=== PATIENT | female | born 1990 | race Caucasian/White ===

== ENCOUNTER 2019-08-10 14:43 | Inpatient (IN) | payer BC ==
[2019-08-18] VITALS (8 sets, daily range): BP systolic 107–127; BP diastolic 56–74; PULSE 68–91; TEMP 98.3–98.5
--- NOTE | 2019-08-18 19:00 | NUR ---
190- PATIENT ADMITED TO LABOR ROOM #5 FOR SCHEDULED INDUCTION. PATIENT AMBULATORY. PATIENT CHANGED INTO GOWN AND VOIDING AT THIS TIME. 1906- EFM PLACED ON PATIENT AT THIS TIME. FHT'S AUDIBLE IN LEFT LOWER QUADRANT IN 140'S, ABDOMEN PALPATED MILD AND RELAXED. 1914- VSS, SVE 1/50/-2 AND INTACT. PATIENT NOT EXPERIENCING CONTRACTIONS AT THIS TIME. CONSENT FORMS SIGNED. 1924- IV START IN LEFT FOREARM AT THIS TIME. 1939- MICOPROSTOL 50MCG GIVEN VAGINAL AT THIS TIME. FHT'S REASURRING FOR GESTATIONAL AGE. 1944- PATIENT DENIES ANY FURTHER NEEDS OR QUESTIONS.
[2019-08-18] MEDS ORDERED: COLACE 100100 MG/CAP PO (19:19)
[2019-08-18] MEDS ORDERED: PRENATAL 191 TAB PO (19:19)
[2019-08-18 19:41] LABS: HEMOGLOBIN 12.2 g/dl (12.5-16.0); MEAN CELL VOLUME 88 fl (80.0-100.0); MEAN CORPUSCULAR HEMOGLOBIN 31 pg (27.0-31.0); MEAN CORPUSCULAR HGB CONC 35 g/dl (33.0-37.0); PLATELET COUNT 181 K/mm3 (130-400); REDCELL DISTRIBUTION WIDTH-CV 13.6 % (11.5-14.5)
[2019-08-18 19:47] LABS: HEMATOCRIT 35.3 % (37.0-47.0)
[2019-08-18 19:58] LABS: BAND 2 % (0-10); LYMPHOCYTE 37 % (20.0-51.0); NEUTROPHILS 55 % (42.0-75.2); PLATELET ESTIMATE NORMAL (NORMAL)
[2019-08-19] VITALS (68 sets, daily range): BP systolic 71–148; BP diastolic 38–91; PULSE 74–138; TEMP 97.8–100.1
--- NOTE | 2019-08-19 06:25 | NUR ---
Intermittent late decelerations noted. Pt repostioned LL. Moderate variability with accelerations remain. 0630-Difficulty tracing FHR. Pulse oximeter probe applied to differentiate maternal/ pulse. LR bolus infusing. 0640-Late deceleration noted. SVE per this RN /-2. Pitocin shut off. Pt repositioned RL.
--- NOTE | 2019-08-19 08:17 | NUR ---
Dr. Morales at bedside. Reviews FHR strip. SVE per provider 3-/-1. Attempted AR. No fluid noted. Pericare performed. Pt repostioned. WR with peanut ball. Pt updated on POC. Bed locked in low position. Call light within reach.
--- NOTE | 2019-08-19 08:48 | NUR ---
Dr. Morales on unit. Reviews FHR strip. Orders to start pitocin infusion.
--- NOTE | 2019-08-19 10:00 | NUR ---
Pt repositioned LL. Late deceleration noted. Pitocin shut off. LR bolus infusing. O2 applied via simple mask at 10L. Pt states increase of pressure in right hip. SVE per this RN /- with bloody show. Pericare performed. Pt repositioned to RL. FHR recovers. Dr. Morales notified. See physician notification. Pt updated on POC. No questions or concerns at this time.
--- NOTE | 2019-08-19 16:35 | NUR ---
Dr. Morales at bedside. Begins pushing with patient. 1700-Orders for Chrisitne. See physician notification.
--- NOTE | 2019-08-19 17:20 | NUR ---
viable male infant attended by Dr. Morales. Nuchal cord x 2. Cord clamped x 2 from umbilicus and taken to warmer. 175-Manual extraction of placenta performed. Pitocin bolus infusing per protocol. Bilateral urethral laceration repair performed by Dr. Morales. Increased maternal bleeding with uterine atony noted. Orders for IM hemabate and methergine. See EMAR. Ray jenkins performed. Curette used for placenta removal. EBL 900cc. 182-Decision for D&C. Pt taken to OR via bed.
[2019-08-19 18:42] LABS: HEMOGLOBIN 10.6 g/dl (12.5-16.0); MEAN CELL VOLUME 89 fl (80.0-100.0); MEAN CORPUSCULAR HEMOGLOBIN 30 pg (27.0-31.0); MEAN CORPUSCULAR HGB CONC 34 g/dl (33.0-37.0); PLATELET COUNT 180 K/mm3 (130-400); RED BLOOD COUNT 3.53 M/mm3 (4.10-5.30); REDCELL DISTRIBUTION WIDTH-CV 13.7 % (11.5-14.5)
[2019-08-19 18:51] LABS: HEMATOCRIT 31.4 % (37.0-47.0)
--- NOTE | 2019-08-19 19:20 | NUR ---
1920 TEMP 99.0. NO UTERINE BLEEDING NOTED. DR LUNA AT BEDSIDE.
--- NOTE | 2019-08-19 19:20 | NUR ---
1920 TO PACU FROM OR AFTER D&C AND PLACEMENT OF INTRAUTERINE TAMPANODE. PERINEUM VERY SWOLLEN. ATKINSON PATENT AND NO VAGINAL BLEEDING NOTED IN TAMPANOLE BAG. SCDS ON. IV INFUSING IN RIGHT HAND AND LEFT FORARM. SLEEPY BUT AROUSES EASILY.
--- NOTE | 2019-08-19 19:25 | NUR ---
1925 O2 PER NC AT 2 L/MIN
--- NOTE | 2019-08-19 19:45 | NUR ---
1944 C/O UTERINE CRAMPING. DR LUNA AT BEDSIDE. MORPHINE 2 MG IVP GIVEN WITH GOOD RELIEF. PT ROMEO.
--- NOTE | 2019-08-19 20:00 | NUR ---
2000 REMAINS IN PACU FOR FIRST UNIT OF BLOOD TRANFUSION STARTED AT 2112. SEE BLOOD TRANSFUSION RECORD FOR VITAL SIGNS.
[2019-08-19 20:35] LABS: HEMATOCRIT 27.3 % (37.0-47.0); HEMOGLOBIN 9.4 g/dl (12.5-16.0)
--- NOTE | 2019-08-19 22:00 | NUR ---
2200 MOVED PER BED FROM PACU TO LR5. INT IN LEFT FOREARM. IV INFUSING PER IV PUMP IN RIGHT HAND. INTRAUTERINE TAMONADE IN PLACE WITH ATKINSON BAG ATTACHED WITH NO MEASUREABLE BLEEDING NOTED. ATKINSON CATH IN PLACE. LASIX 20 MG IVP PER DRS ORDER. UTERINE TAMPONADE FILLED WITH 200CC NS AND NO INCREASE IN FUNDAL HEIGHT NOTED.
--- NOTE | 2019-08-19 22:30 | NUR ---
2230 SECOND UNIT PRBC'S STARTED PER IV PUMP. NO VAG BLEEDING NOTED AND NO INCREASE IN UTERINE HEIGHT. SCD'S ON AND MOVES LEGS WELL IN BED. ICE CHIPS TAKEN.
[2019-08-20] VITALS (25 sets, daily range): BP systolic 93–129; BP diastolic 54–70; PULSE 70–108; TEMP 97.9–99.9
--- NOTE | 2019-08-20 01:00 | NUR ---
0100 BLOOD INFUSED. LASIX 20 MG IVP GIVEN. UTERINE HEIGHT REMAINS THE SAME. ICE REFRESHED TO PERINEUM WHICH REMAINS VERY EDEMATOUS. NO VAG BLEEDING NOTED WITH SOME DARK RED BLOOD NOTED IN TUBE FROM UTERINE TAMPONADE. VOICES NO COMPLAINTS AT THIS TIME. LIGHTS OFF TO SLEEP
[2019-08-20 06:10] LABS: HEMOGLOBIN 10.5 g/dl (12.5-16.0); MEAN CELL VOLUME 87 fl (80.0-100.0); MEAN CORPUSCULAR HEMOGLOBIN 30 pg (27.0-31.0); MEAN CORPUSCULAR HGB CONC 35 g/dl (33.0-37.0); MEAN PLATELET VOLUME 11.4 fl (7.4-10.4); PLATELET COUNT 152 K/mm3 (130-400); RED BLOOD COUNT 3.47 M/mm3 (4.10-5.30); REDCELL DISTRIBUTION WIDTH-CV 14.4 % (11.5-14.5)
[2019-08-20 06:14] LABS: HEMATOCRIT 30.1 % (37.0-47.0)
--- NOTE | 2019-08-20 06:30 | NUR ---
Bedside report recieved from Gildardo SALAMANCA. Patient resting at this time and feeling some cramps/requests pain medication at this time. Motrin given see EMAR. New ice pack to perineum. 0700: Fundal height remains the same. Small amount of blood in Bakri diaz. Patient has no needs at this time. 0800: Fundal height remains the same. 0810: at bedside and updating patient on plan of care. Orders to removed right hand IV at this time and patient can eat breakfast. IV removed in right hand and catheter intact and patient tolerates well. Breakfast ordered. Patient is holding infant and has no needs at this time.
[2019-08-20 07:52] LABS: BAND 27 % (0-10); LYMPHOCYTE 11 % (20.0-51.0); NEUTROPHILS 58 % (42.0-75.2); PLATELET ESTIMATE NORMAL (NORMAL)
--- NOTE | 2019-08-20 08:40 | NUR ---
Dr. Morales at bedside and vaginal packing removed at this time and patient tolerates well. Plan of care discussed. Dr. Morales states she will be back around [id number] to remove Bakri. No new orders at this time
--- NOTE | 2019-08-20 09:00 | NUR ---
Fundal Height unchanged. Patient eating breakfast. 0920: Patient pumping and has no needs at this time.
--- NOTE | 2019-08-20 14:00 | NUR ---
at bedside discussing previous care and plan of care at this time. 1515: Dr. Morales at bedside and removes 100ml of fluid from Bakri at this time and patient tolerates well. Will continue to monitor.
--- NOTE | 2019-08-20 16:15 | NUR ---
at bedside and removing 100ml of fluid from bakri. Bakri balloon removed at this time and patient tolerates well. 1640: Fundal massage done/fundus firm/bleeding WNL. Patient resting in supine position and has no needs at this time. 1715: Patient sitting upright in bed.
--- NOTE | 2019-08-20 17:30 | NUR ---
Patient assisted to edge of bed. Bernardo RN at bedside. Patient stands and to rocking chair. Dr. Morales orders that she can have supper and if able to ambulate a small amount can take out diaz catheter.
--- NOTE | 2019-08-20 22:57 | NUR ---
1830 INTO SEE PATIENT, PLAN OF CARE DISCUSSED. PATIENT SITTING IN CHAIR AT BEDSIDE WAITING FOR DINNER TO COME.
--- NOTE | 2019-08-20 22:59 | NUR ---
1930 IN TO SEE PT, FAMILY AT BEDSIDE STILL WAITING FOR FOOD TO COME. PT UP AND ABOUT WITH STAND BY ASSIST. V-PAD HAS A 1 INCH WIDE STRIP BY 3 INCHES. PT DID WELL NO LIGHTHEADEDNESS OR DIZZINESS NOTED. PT TO BED.
--- NOTE | 2019-08-20 23:02 | NUR ---
2030 PT DONE EATING AMBULATES IN ROOM, TOLERATES WELL, TO BATHROOM, ATKINSON REMOVED, REVIEWED JEET CARE. BACK TO BED.
--- NOTE | 2019-08-20 23:03 | NUR ---
2200 PT DOING GREAT, FUNDUS FIRM DOWN 2U, BLEEDING LIGHT, NO DIZZINESS OR LIGHTHEADEDNESS. AMBULATES WITH STANDBY ASSIST TO NURSE TOLERATES WELL.
[2019-08-21 04:00] VITALS: BP 116/55; PULSE 117; TEMP 99.6
[2019-08-21 07:30] VITALS: BP 99/47; PULSE 112; TEMP 98.4
[2019-08-21 08:51] LABS: MEAN CELL VOLUME 89 fl (80.0-100.0); MEAN CORPUSCULAR HGB CONC 34 g/dl (33.0-37.0); MEAN PLATELET VOLUME 10.5 fl (7.4-10.4); PLATELET COUNT 160 K/mm3 (130-400); RED BLOOD COUNT 2.51 M/mm3 (4.10-5.30); REDCELL DISTRIBUTION WIDTH-CV 14.9 % (11.5-14.5)
[2019-08-21 08:56] LABS: HEMATOCRIT 22.4 % (37.0-47.0); HEMOGLOBIN 7.7 g/dl (12.5-16.0); MEAN CORPUSCULAR HEMOGLOBIN 31 pg (27.0-31.0)
[2019-08-21 10:00] VITALS: BP 97/49; PULSE 113; TEMP 98.1
[2019-08-21 11:42] VITALS: BP 113/60; PULSE 119; TEMP 98.5
[2019-08-21 15:25] VITALS: BP 110/55; PULSE 120; TEMP 98.2
[2019-08-21 20:15] VITALS: BP 105/49; PULSE 113; TEMP 98.1
[2019-08-22] VITALS (29 sets, daily range): BP systolic 92–120; BP diastolic 40–87; PULSE 79–110; TEMP 97.6–98.6
[2019-08-22 06:52] LABS: MEAN CELL VOLUME 90 fl (80.0-100.0); MEAN CORPUSCULAR HGB CONC 34 g/dl (33.0-37.0); MEAN PLATELET VOLUME 10.8 fl (7.4-10.4); PLATELET COUNT 159 K/mm3 (130-400); RED BLOOD COUNT 2.09 M/mm3 (4.10-5.30); REDCELL DISTRIBUTION WIDTH-CV 14.6 % (11.5-14.5)
[2019-08-22 06:56] LABS: HEMATOCRIT 18.9 % (37.0-47.0); HEMOGLOBIN 6.4 g/dl (12.5-16.0); MEAN CORPUSCULAR HEMOGLOBIN 31 pg (27.0-31.0)
--- NOTE | 2019-08-22 09:12 | NUR ---
Infusion started at 60ml/hour. Pt tolerated well for first fifteen minutes. Infusion then progressed to 125ml/hr. Pt continues to tolerate infusion well. 0929-Infusion progressed to 250ml/hr. Pt continues to tolerate well. 0931-Pt reports mild stinging at infusion site. Infusion decreased to 200ml/hour.
--- NOTE | 2019-08-22 20:00 | NUR ---
PT STATES SHE IS FEELING MUCH BETTER NOW SINCE TRNASFUSION. HOLDS -RESTING. SPOUSE ATTENTIVE 2199 DR SUTHERLAND HER TO DISCUSS BABY LAB WORK WITH PARENTS
[2019-08-23 05:56] VITALS: BP 107/64; PULSE 86; TEMP 98.1
[2019-08-23 08:38] LABS: HEMATOCRIT 26.4 % (37.0-47.0); HEMOGLOBIN 8.9 g/dl (12.5-16.0)
[2019-08-23 11:54] LABS: COLLECTION METHOD CLEAN CATCH
[2019-08-23 12:44] LABS: PH 6 (5-8); SQUAMOUS EPITHELIAL 0-2 /hpf; URINE APPEARANCE Clear; URINE BACTERIA Rare /hpf; URINE BILIRUBIN Negative (NEGATIVE); URINE BLOOD 3+ (NEGATIVE); URINE COLOR Straw; URINE GLUCOSE Negative (NEGATIVE); URINE KETONE Negative (NEGATIVE); URINE LEUKOCYTE ESTERASE 3+ (NEGATIVE); URINE NITRATE Negative (NEGATIVE); URINE PROTEIN(semi-quant) Negative (NEGATIVE); URINE RBC None Seen /hpf; URINE UROBILINOGEN Negative (NEGATIVE); URINE WBC 20-50 /hpf
[2019-08-23 16:30] VITALS: BP 104/63; PULSE 70; TEMP 98
[2019-08-23 20:00] VITALS: BP 114/63; PULSE 76; TEMP 98.5
[2019-08-24 06:47] VITALS: BP 112/66; PULSE 78; TEMP 97.8
[2019-08-24 07:21] LABS: MEAN CELL VOLUME 89 fl (80.0-100.0); MEAN CORPUSCULAR HGB CONC 33 g/dl (33.0-37.0); PLATELET COUNT 188 K/mm3 (130-400); RED BLOOD COUNT 2.85 M/mm3 (4.10-5.30); REDCELL DISTRIBUTION WIDTH-CV 15.3 % (11.5-14.5)
[2019-08-24 07:23] LABS: HEMATOCRIT 25.4 % (37.0-47.0); HEMOGLOBIN 8.4 g/dl (12.5-16.0); MEAN CORPUSCULAR HEMOGLOBIN 29 pg (27.0-31.0)
[2019-08-24] MEDS ORDERED: FERROUS SU325 MG/TAB PO (11:00)
[2019-08-24] MEDS ORDERED: IBU800 M1 PO (11:00)
[2019-08-24] MEDS ORDERED: AMOXICILLIN 50500 MG PO (11:00)
[2019-08-24 15:21] VITALS: BP 114/68; PULSE 78; TEMP 98.1
== END 2019-08-24 15:22 | disposition home or self-care (01) | DRG 768 ==
LOC: LDR 08-18 14:43 → OB 08-20 22:00
PROVIDERS: Obstetrics & Gynecology; ADMIT Student in an Organized Health Care Education/Training Program
PROC: 10E0XZZ Delivery of Products of Conception, External Approach (ICD-10-PCS; principal; 2019-08-19)
PROC: 3E033VJ Introduction of Other Hormone into Peripheral Vein, Percutaneous Approach (ICD-10-PCS; 2019-08-19)
PROC: 3E0P7VZ Introduction of Hormone into Female Reproductive, Via Natural or Artificial Opening (ICD-10-PCS; 2019-08-19)
PROC: 0W3R7ZZ Control Bleeding in Genitourinary Tract, Via Natural or Artificial Opening (ICD-10-PCS; 2019-08-19)
PROC: 10D17Z9 Manual Extraction of Products of Conception, Retained, Via Natural or Artificial Opening (ICD-10-PCS; 2019-08-19)
PROC: 0UQC7ZZ Repair Cervix, Via Natural or Artificial Opening (ICD-10-PCS; 2019-08-19)
DX: O48.0 Post-term pregnancy (principal); Z37.0 Single live birth; O72.1 Other immediate postpartum hemorrhage; O86.20 Urinary tract infection following delivery, unspecified; O71.3 Obstetric laceration of cervix; O76 Abnormality in fetal heart rate and rhythm complicating labor and delivery; O26.893 Other specified pregnancy related conditions, third trimester; R60.9 Edema, unspecified; O90.89 Other complications of the puerperium, not elsewhere classified; O90.81 Anemia of the puerperium; D64.9 Anemia, unspecified; Z3A.40 40 weeks gestation of pregnancy; Z67.41 Type O blood, Rh negative
CPT/HCPCS: J0690; J1940; J2210; J2270; J2370; J2400; J2405; J2540; J2590; J2704; J2791; J2795; J3010; J7030; J7120; P9016

== ENCOUNTER → 2021-11-12 | Outpatient (CLI) | payer BC ==
[~2021-11-12] MED LIST: AMOXICILLIN 50500 MG PO; COLACE 100100 MG/CAP PO; FERROUS SU325 MG/TAB PO; IBU800 M1 PO; PRENATAL 191 TAB PO
== END ==
LOC: DIA.ED 07:53
DX: O24.419 Gestational diabetes mellitus in pregnancy, unspecified control (principal)
CPT/HCPCS: G0108

== ENCOUNTER 2022-01-17 06:12 | Inpatient (IN) | payer BC ==
[~2022-01-17] VITALS: Ht 154.9 cm; Wt 64.5 kg
[2022-01-17] VITALS (56 sets, daily range): BP systolic 77–181; BP diastolic 39–72; PULSE 70–133; TEMP 97.9–98.7
--- NOTE | 2022-01-17 06:15 | NUR ---
Pt ambulatory onto unit with spouse to LR4. Changed into clean gown. FHR monitor/TOCO applied. Vital signs WNL. Pt denies any vaginal bleeding, leaking of fluid, regular contractions, or decreased movement. Pt oriented to room. Plan of care and IOL discussed. Pt verbalizes understanding. Assessments done. Consents signed. IV started in right forearm. No redness/drainage/edema noted. 0700 Pitocin and LR started per protocol. Call light within reach
[2022-01-17 08:14] LABS: HEMOGLOBIN 10.6 g/dl (12.5-16.0); MEAN CELL VOLUME 87 fl (80.0-100.0); MEAN CORPUSCULAR HEMOGLOBIN 28 pg (27-31); MEAN CORPUSCULAR HGB CONC 33 g/dl (33.0-37.0); MEAN PLATELET VOLUME 10.6 fl (7.4-10.4); PLATELET COUNT 152 K/mm3 (130-400); RED BLOOD COUNT 3.77 M/mm3 (4.10-5.30); REDCELL DISTRIBUTION WIDTH-CV 13.9 % (11.5-14.5)
[2022-01-17 08:18] LABS: HEMATOCRIT 32.6 % (37.0-47.0)
[2022-01-17 08:32] LABS: BAND 1 % (0-10); EOSINOPHIL 1 % (0-4); LYMPHOCYTE 22 % (20.0-51.0); NEUTROPHILS 68 % (42.0-75.2); PLATELET ESTIMATE NORMAL (NORMAL)
[2022-01-17 08:33] LABS: METAMYELOCYTE 2 % (0-0)
--- NOTE | 2022-01-17 12:00 | NUR ---
SUBTLE LATE DECELERATIONS NOTED. PT REPOSITIONED. LR RUNNING. 1210 EPHEDRINE GIVEN. 1218 PT REPOSITIONED.
--- NOTE | 2022-01-17 19:30 | NUR ---
1930 DR LUNA HERE. READIED FOR DELIVERY. 193 DEL VIABLE MALE OVER INTACT PERINEUM APGARS 05/24/10. REMAINS IN LR4.
--- NOTE | 2022-01-17 19:48 | NUR ---
1947 DELIVERY PLACENTA. 1948 METHERGINE 0.2 MG IM GIVEN IN LEFT THIGH. FUNDAL MASSAGE PER DR LUNA. 1955 FUNDAS FIRM. MOD RUBRA WITH SMALL CLOTS. FUNDAL MASSAGE PER DR LUNA. HEMABATE 250 MCG/ML IM IN RIGHT THIGH. 2017 FUNDAS FIRM U/2 WITH MOD RUBRA AND 5 CM CLOT PASSED. CYTOTEC 800 MCG PER RECTUM GIVEN PER DR LUNA. 2100 SM TO MOD VAG BLEEDING. FUNDAS FIRM.
--- NOTE | 2022-01-17 21:45 | NUR ---
EPIDURAL CATHETER REMOVED WITHOUT DIFFICULTY. PATIENT ASSISTED TO SIDE OF THE BED, REPORTS NO DIZZINESS OR LIGHTHEADEDNESS. PATIENT AMBULATED WITH 1 PERSON STANDBY ASSIST TO BATHROOM AND URINATED 300 ML OF CLEAR, YELLOW URINE. NO CLOTS OBSERVED BY NURSE. NEW GOWN, JEET-PAD, MESH UNDERWEAR PROVIDED. PATIENT DECLINED ICE PACK. PATIENT AMBULATED TO ROOM WITH NO REPORTS OF LIGHTHEADEDNESS. PATIENT AND SIGNIFICANT OTHER ORIENTED TO ROOM. INFANT IN NURSERY RECEIVING BATH. PATIENT INSTRUCTED TO CALL FOR ASSISTANCE IF BLEEDING WORSENS, OR CLOTS ARE OBSERVED. PATIENT VERBALIZED UNDERSTANDING OF INSTRUCTIONS.
[2022-01-18 03:00] VITALS: BP 102/60; PULSE 77; TEMP 98.4
[2022-01-18 07:30] VITALS: BP 93/55; PULSE 89; TEMP 98.4
[2022-01-18] MEDS ORDERED: IBU800 M1 PO (08:09)
--- NOTE | 2022-01-18 09:39 | NUR ---
Initial visit; Parents and Grandma thanked Backup Administrator for offering congratulations and God's blessings for the of their little boy. Backup Administrator thanked family for choosing our hospital.
[2022-01-18 13:46] VITALS: BP 96/59; PULSE 71; TEMP 98.2
[2022-01-18 18:10] VITALS: BP 109/64; PULSE 75; TEMP 98
[2022-01-18 20:15] VITALS: BP 111/64; PULSE 67; TEMP 97.7
--- NOTE | 2022-01-18 21:15 | NUR ---
2114- DISCHARGE INSTRUCTIONS GIVEN AND PT VERBALIZES UNDERSTANDING. PT BANDS CUT AND PAPERS SIGNED. 2121- PT DISMISSED TO HOME AMBULATORY WITH SPOUSE AND BABY ACCOMPANYING.
== END 2022-01-18 21:22 | disposition home or self-care (01) | DRG 806 ==
LOC: LDR 06:12 → OB 06:12 → LDR 07:49 → OB 19:36
PROVIDERS: ADMIT Student in an Organized Health Care Education/Training Program
PROC: 10E0XZZ Delivery of Products of Conception, External Approach (ICD-10-PCS; principal; 2022-01-18)
PROC: 3E033VJ Introduction of Other Hormone into Peripheral Vein, Percutaneous Approach (ICD-10-PCS; 2022-01-18)
PROC: 10907ZC Drainage of Amniotic Fluid, Therapeutic from Products of Conception, Via Natural or Artificial Opening (ICD-10-PCS; 2022-01-18)
DX: O24.420 Gestational diabetes mellitus in childbirth, diet controlled (principal); O72.1 Other immediate postpartum hemorrhage; Z37.0 Single live birth; O26.893 Other specified pregnancy related conditions, third trimester; Z67.41 Type O blood, Rh negative; Z3A.39 39 weeks gestation of pregnancy; Z23 Encounter for immunization
CPT/HCPCS: J2210; J2590; J2791; J7120